=== PATIENT | female | born 1995 | race Caucasian/White ===

== ENCOUNTER 2018-02-27 13:16 | Emergency (ER) | payer MEDICAID ==
[~2018-02-27] VITALS: Ht 180.3 cm; Wt 81.6 kg
[2018-02-27 13:38] VITALS: Ht 180.3 cm; Wt 81.6 kg
[2018-02-27 14:51] LABS: BASOPHIL % 0.3 % (0-2); PLATELET COUNT 264 x10^3mcL (130-400)
[2018-02-27 14:56] LABS: CALCIUM 9.5 mg/dL (8.5-10.1); CARBON DIOXIDE 23.7 mmol/L (21-32); CHLORIDE SERUM 101 mmol/L (98-107); GFR1 > 60 mL/min; GLUCOSE SERUM 108 mg/dL (74-106); POTASSIUM SERUM 4.3 mmol/L (3.5-5.1); SODIUM SERUM 137 mmol/L (136-145)
[2018-02-27 15:00] LABS: ALBUMIN 4.7 g/dL (3.4-5.0); ALKALINE PHOSPHATASE 50 U/L (46-116); ALT/SGPT 24 U/L (14-59); AST/SGOT 19 U/L (15-37); BILIRUBIN TOTAL 0.7 mg/dL (0.20-1.00); LIPASE 67 IU/L (73-393); TOTAL PROTEIN, SERUM 8.2 g/dL (6.4-8.2)
[2018-02-27 16:48] VITALS: BP 108/70
== END 2018-02-27 16:45 | disposition home or self-care (01) ==
LOC: ED 13:16
PROVIDERS: Emergency Medicine
DX: N20.0 Calculus of kidney (principal); N39.0 Urinary tract infection, site not specified
CPT/HCPCS: 36415; J0696; J1885; J2270; Q0162

== ENCOUNTER 2018-03-31 18:46 | Emergency (ER) | payer MEDICAID ==
[2018-03-31 20:55] LABS: BASOPHIL % 0.2 % (0-2); PLATELET COUNT 264 x10^3mcL (130-400); RED CELL DISTRIBUTION WIDTH 13.4 % (11.5-14.5)
[2018-03-31 21:02] LABS: ALKALINE PHOSPHATASE 80 U/L (46-116); ALT/SGPT 25 U/L (14-59); AMYLASE 37 U/L (25-115); AST/SGOT 25 U/L (15-37); BILIRUBIN TOTAL 0.4 mg/dL (0.20-1.00); CALCIUM 8.7 mg/dL (8.5-10.1); CARBON DIOXIDE 27.3 mmol/L (21-32); CHLORIDE SERUM 100 mmol/L (98-107); GFR1 > 60 mL/min; GLUCOSE SERUM 100 mg/dL (74-106); LIPASE 118 IU/L (73-393); SODIUM SERUM 136 mmol/L (136-145); TOTAL PROTEIN, SERUM 7.2 g/dL (6.4-8.2)
[2018-03-31 21:06] LABS: ALBUMIN 2.7 g/dL (3.4-5.0)
[2018-03-31 21:07] LABS: POTASSIUM SERUM 2.9 mmol/L (3.5-5.1)
[2018-04-01 00:34] VITALS: BP 102/64
== END 2018-04-01 00:34 | disposition home or self-care (01) ==
LOC: ED 18:46
PROVIDERS: Emergency Medicine
DX: N12 Tubulo-interstitial nephritis, not specified as acute or chronic (principal); K59.00 Constipation, unspecified; R11.10 Vomiting, unspecified; E87.6 Hypokalemia
CPT/HCPCS: 83880; J0780; J1885; J2270; J2405; J7030

== ENCOUNTER 2019-12-18 13:27 | Emergency (ER) | payer OTHER ==
[~2019-12-18] VITALS: Ht 177.8 cm; Wt 109.8 kg
[2019-12-18 13:53] VITALS: Ht 177.8 cm; Wt 109.8 kg
[2019-12-18 16:12] VITALS: BP 102/42
== END 2019-12-18 16:12 | disposition home or self-care (01) ==
LOC: ED 13:27
DX: R19.7 Diarrhea, unspecified (principal)